=== PATIENT | female | born 1980 | race African-American/Black ===

== ENCOUNTER 2020-07-13 12:58 | Emergency (ER) | payer OTHER ==
[2020-07-13 13:20] VITALS: BP 132/73; PULSE 79; TEMP 97.9; BMI 21.6
[2020-07-13] MEDS ORDERED: KETOROLAC TROMETHAMINE 60 MG/2 ML VIAL ONE (14:07)
[2020-07-13] MEDS ORDERED: KETOROLAC TROMETHAMINE 60 MG/2 ML VIAL IM ONE (14:07)
[2020-07-13] MEDS ORDERED: CYCLOBENZAPRINE HCL 10 MG TABLET (FP) PO ONE (14:07)
[2020-07-13] MEDS ORDERED: CYCLOBENZAPRINE HCL 10 MG TABLET (FP) ONE (14:07)
== END 2020-07-13 14:42 | disposition home or self-care (01) ==
LOC: JERFT 12:58
PROC: 3E0233Z Introduction of Anti-inflammatory into Muscle, Percutaneous Approach (ICD-10-PCS; principal; 2020-07-13)
DX: M54.5 Low back pain (principal)
CPT/HCPCS: 99284-25